=== PATIENT | male | born 1960 | race Caucasian/White ===

== ENCOUNTER → 2020-03-24 11:43 | Outpatient (CLI) | payer MEDICARE, SELFPAY ==
--- NOTE | 2020-03-24 11:44 | DI.RAD.S_ITS ---
PROCEDURE: XR LUMBAR SPINE MIN 4V INDICATIONS: Lumbar radiculopathy TECHNIQUE: 5 views of the lumbar spine were acquired. COMPARISON: Outside Facility, RG, CT THORAX/ABDOMEN/PELVIS WITH CONTRAST, 02/26/2018, 10:05. S1 anterolisthesis. FINDINGS: Bones: There are 5 [id number] lumbar vertebral bodies. There is grade I L5 on S1 anterolisthesis. No compression deformities. Vertebral body height is preserved. Degenerative changes are present in the lower lumbar spine including osteophytosis and facet sclerosis. Soft tissues: Overlying bowel gas pattern is normal. No suspicious soft tissue calcifications. Oblique images: No pars defects. IMPRESSION: 1. L5-S1 anterolisthesis. No spondylolysis. Degenerative change of the lower lumbar spine. Dictated by: Barbra Bullock M.D. on 03/24/2020 at 15:52 Approved by: Barbra Bullock M.D. on 03/24/2020 at 15:55
== END ==
PROVIDERS: Family Provider Student in an Organized Health Care Education/Training Program; PCP Student in an Organized Health Care Education/Training Program; Referring Provider Physical Medicine & Rehabilitation; Visit Provider Physical Medicine & Rehabilitation
DX: M47.26 Other spondylosis with radiculopathy, lumbar region (principal); M43.17 Spondylolisthesis, lumbosacral region
CPT/HCPCS: 72110; 99214